=== PATIENT | male | born 1995 | race Caucasian/White ===

== ENCOUNTER 2023-12-18 19:57 | Emergency (ER) | payer OTHER, SELFPAY ==
[2023-12-18 19:57] VITALS: BP 149/103; PULSE 128; RESP 18; TEMP 36.8; O2SAT 99
[2023-12-18] MEDS: SODIUM CHLORIDE 0.9% IV 1,000 ML 999 ML IV CONT (20:21)
[2023-12-18] MEDS: ONDANSETRON INJ 4 MG/2 ML VIAL IV PUSH (20:22)
[2023-12-18 20:26] LABS: Basophils Absolute Auto 0.08 K/mm3 (0.00-0.10); Basophils Percent Auto 0.6 % (0.0-1.0); Eosinophils Absolute Auto 0.17 K/mm3 (0.02-0.50); Eosinophils Percent Auto 1.3 % (1.0-6.0); Hemoglobin 14.6 g/dL (14.0-18.0); Immature Granulocyte Absolute 0.04 K/mm3 (0.00-0.00); Immature Granulocyte Percent A 0.3 % (0.0-0.0); Lymphocytes Absolute Auto 2.82 K/mm3 (1.10-4.50); Lymphocytes Percent Auto 21.7 % (18.0-42.0); Mean Corpuscular HGB Conc 35.6 g/dL (32-36); Mean Corpuscular Hemoglobin 29.5 pg (27.0-31.0); Mean Corpuscular Volume 82.8 fL (78.0-102.0); Mean Platelet Volume 9.1 fl (8.7-11.0); Monocytes Absolute Auto 1.09 K/mm3 (0.10-0.90); Monocytes Percent Auto 8.4 % (2.0-11.0); Neutrophils Absolute Auto 8.78 K/mm3 (1.70-7.20); Neutrophils Percent Auto 67.7 % (50.0-70.0); Platelet Count Result 321 K/mm3 (150-420); Red Blood Count 4.95 M/mm3 (4.70-6.10); Red Cell Distribution Width 12.3 % (11.6-14.4)
[2023-12-18 20:37] LABS: Alanine Aminotransferase 56 U/L (16-63); Alkaline Phosphatase 119 U/L (46-116); Anion Gap 8 mmol/L (4-12); Aspartate Amino Transferase 27 U/L (15-37); Bilirubin,Total 0.5 mg/dL (0.00-1.00); Blood Urea Nitrogen 9 mg/dL (7-18); Calcium 9.9 mg/dL (8.5-10.1); Carbon Dioxide 31 mmol/L (21-32); Chloride 98 mmol/L (98-108); Estimated CRCL calculation 98 ml/min; Estimated Glomerular Filt Rate > 60; Glucose 99 mg/dL (70-99); Lipase 20 U/L (16-77); Osmolality Calculated 282 mOsm/kg (285-295); Potassium 3.5 mmol/L (3.5-5.1); Sodium 137 mmol/L (136-145); Total Protein 7.4 g/dL (6.4-8.2)
[2023-12-18 20:40] LABS: Lactic Acid Reflex 0.8 mmol/L (0.4-2.0)
--- NOTE | 2023-12-18 20:56 | ED.NAVMDI ---
HPI - Nausea/Vomiting/Diarrhea General Chief complaint: Nausea/Vomiting/Diarrhea Stated complaint: vomitting Time Seen by Provider: 12/18/23 20:03 Source: patient Mode of arrival: ambulatory Limitations: no limitations History of Present Illness HPI Narrative: this is a 28-year-old male who presents with nausea and vomiting over the past 10 days, patient has difficulty keeping things down there is currently no abdominal pain no fever chills no diarrhea or constipation. Patient states that he has a history of cannabis use. MD elicited complaint: nausea and vomiting Pertinent past history: cyclical vomiting Onset (ago): day(s) Description of vomiting: watery Severity: mild Related Data Home Medications Medication Instructions Recorded Confirmed buspirone 15 mg tablet 15 mg PO BID 12/18/23 12/18/23 guanfacine 1 mg tablet 1 mg PO HS 12/18/23 12/18/23 lamotrigine 100 mg tablet 100 mg PO BID 12/18/23 12/18/23 risperidone 3 mg tablet 3 mg PO BID 12/18/23 12/18/23 Allergies Allergy/AdvReac Type Severity Reaction Status Date / Time Penicillins Allergy Intermediate HIVES Verified 02/10/14 19:44 Review of Systems Review of Systems: All systems reviewed & are unremarkable except as noted in HPI and below PMFSH Past Medical History Medical History Patient denies medical problems Exam Const: General: healthy appearing and no acute distress Nutritional Appearance: well nourished Orientation/consciousness: patient oriented x3 Limitations: no limitations Eyes: Conjunctivae: conjunctivae normal Neck: Neck: normal visual inspection and no lymphadenopathy Chest: Chest palpation & inspection: normal inspection of the chest Resp: Effort & Inspection: normal respiratory effort Auscultation: clear to auscultation bilaterally Cardio: Rate: regular rate Rhythm: regular rhythm GI: GI Palp: Yes Soft to palpation Auscultation: normal bowel sounds : General: Yes bladder normal to palpation Neuro: General: patient oriented x3, moves all extremities, no meningeal signs and no focal motor deficits Course Course Emergency Course: patient had blood work performed white count was mildly elevated patient had IV fluids and IV Zofran which improved his nausea vomiting advised to follow-up with his primary. Vital Signs Vital signs: Vital Signs Temperature 36.8 C 12/18/23 19:57 Pulse Rate 128 H 12/18/23 19:57 Respiratory Rate 18 12/18/23 19:57 Blood Pressure 149/103 H 12/18/23 19:57 Pulse Oximetry 99 12/18/23 19:57 Oxygen Delivery Room Air 12/18/23 19:57 Temperature 36.8 C 12/18/23 19:57 Pulse Rate 128 H 12/18/23 19:57 Respiratory Rate 18 12/18/23 19:57 Blood Pressure 149/103 H 12/18/23 19:57 Pulse Oximetry 99 12/18/23 19:57 Oxygen Delivery Room Air 12/18/23 19:57 MDM - Nausea/Vomiting/Diarrhea Lab Data 12/18/23 20:12 12/18/23 20:12 Labs: Lab Results 12/18/23 Range/Units 20:12 WBC 13.0 H (4.8-10.8) K/mm3 RBC 4.95 (4.70-6.10) M/mm3 Hgb 14.6 (14.0-18.0) g/dL Hct 41.0 (40.0-54.0) % MCV 82.8 (78.0-102.0) fL MCH 29.5 (27.0-31.0) pg MCHC 35.6 (32-36) g/dL RDW 12.3 (11.6-14.4) % Plt Count 321 (150-420) K/mm3 MPV 9.1 (8.7-11.0) fl Immature Gran % (Auto) 0.3 H (0.0-0.0) % Neut % (Auto) 67.7 (50.0-70.0) % Lymph % (Auto) 21.7 (18.0-42.0) % [place] % (Auto) 8.4 (2.0-11.0) % Eos % (Auto) 1.3 (1.0-6.0) % Baso % (Auto) 0.6 (0.0-1.0) % Lymph # (Auto) 2.82 (1.10-4.50) K/mm3 [place] # (Auto) 1.09 H (0.10-0.90) K/mm3 Eos # (Auto) 0.17 (0.02-0.50) K/mm3 Baso # (Auto) 0.08 (0.00-0.10) K/mm3 Abs Immat Gran (auto) 0.04 H (0.00-0.00) K/mm3 Absolute Neuts (auto) 8.78 H (1.70-7.20) K/mm3 Absolute Nucleated RBC 0.00 (0.00-0.00) K/mm3 Nucleated RBC % 0.0 (0-0.0) % Sodium 137 (136-145) mmol/L Potassium 3.5 (3.5-5.1) mmol/L Chlori
[2023-12-18 21:09] VITALS: BP 136/85; PULSE 89; RESP 18; TEMP 36.7; O2SAT 99
== END 2023-12-18 21:09 | disposition home or self-care (01) ==
PROVIDERS: Emergency Provider Emergency Medicine
DX: R11.2 Nausea with vomiting, unspecified (principal); F12.90 Cannabis use, unspecified, uncomplicated; Z79.899 Other long term (current) drug therapy
CPT/HCPCS: 36415; 80053; 83605; 83690; 85025; 96361; 96374; 99284; J2405; J7030